=== PATIENT | female | born 1985 | race Hispanic/Latino ===

== ENCOUNTER 2017-03-22 19:37 | Inpatient (IN) | payer MEDICAID, OTHER ==
[~2017-03-22] VITALS: Ht 154.9 cm; Wt 70.3 kg
[2017-03-22] MEDS ORDERED: LACTATED RINGERS 1000ML 1,000 ML IV PRN (20:28)
[2017-03-22] MEDS ORDERED: LACTATED RINGERS 1000ML 1,000 ML IV ONE (20:44)
[2017-03-22 20:47] LABS: APPEARANCE,URINE Clear (CLEAR); BILIRUBIN,URINE Negative (NEGATIVE); COLOR,URINE Yellow (YELLOW); GLUCOSE, URINE (UA) Negative (NEGATIVE); KETONES,URINE Negative (NEGATIVE); LEUKOCYTE ESTERASE ,URINE Moderate (NEGATIVE); NITRATE,URINE Negative (NEGATIVE); OCCULT BLOOD,URINE Negative (NEGATIVE); PROTEIN,URINE Negative (NEGATIVE); UROBILINOGEN,URINE 0.2 mg/dL (0.2-1.0)
[2017-03-22 21:05] LABS: BACTERIA,URINE Few /HPF (None Seen); RBC,URINE None Seen /HPF (0-1)
[2017-03-22 21:15] LABS: HEMATOCRIT 34.4 % (36-48); MEAN CORPUSCULAR HEMOGLOBIN 29.4 pg (27.0-33.0); MEAN CORPUSCULAR HGB CONC 33.9 g/dL (32.0-36.0); MEAN CORPUSCULAR VOLUME 86.7 fL (79-99); NUCLEATED RED BLOOD CELLS 0.1 % (0.0-0.19); PLATELET COUNT (AUTO) 197 K/uL (130-400); RED BLOOD CELL COUNT(AUTO) 3.97 MIL/uL (4.00-5.50); RED CELL DISTRIBUTION WIDTH 13.4 % (11.0-15.5); WHITE BLOOD COUNT (AUTO) 9.2 K/uL (4.8-10.8)
[2017-03-23] MEDS ORDERED: OXYTOCIN 10 USP UNITS/ML ONE ×3 (01:53→15:34)
[2017-03-23] MEDS ORDERED: LACTATED RINGERS 1000ML 1,000 ML IV ONE ×2 (01:53→11:16)
[2017-03-23] MEDS ORDERED: OXYTOCIN 10 USP UNITS/ML 20 UNIT in LACTATED RINGERS 1000ML 1,000 ML IV SCH (03:00)
[2017-03-23] MEDS ORDERED: PROMETHAZINE HCL 25 MG/ML 1ML AMPULE IM STA (05:09)
[2017-03-23] MEDS ORDERED: MEPERIDINE-PF 50 MG/ML SYG IVP STA (05:09)
[2017-03-23 06:47] LABS: RAPID PLASMA REAGIN NONREACTIVE (NONREACTIVE)
[2017-03-23] MEDS ORDERED: MEPERIDINE-PF 50 MG/ML SYG IVP SCH ×2 (07:45→08:00)
[2017-03-23] MEDS ORDERED: PROMETHAZINE HCL 25 MG/ML 1ML AMPULE IM SCH ×2 (07:45→08:00)
[2017-03-23] MEDS ORDERED: MEPERIDINE-PF 25 MG/ML SYG ONE (08:02)
[2017-03-23] MEDS ORDERED: LIDOCAINE HCL 2% 20ML ONE (09:46)
[2017-03-23 11:27] VITALS: BP 102/64
[2017-03-23] MEDS ORDERED: BENZOCAINE/LANOLIN/ALOE VERA 60 ML AEROSOL TP PRN (11:30)
[2017-03-23] MEDS ORDERED: HYDROCODONE/ACETAMINOPHEN 5/325 MG TAB PO PRN (11:30)
[2017-03-23] MEDS ORDERED: MEASLES/MUMPS/RUBELLA VACCINE, LIVE 0.5 ML/VIAL SQ PRN (11:30)
[2017-03-23] MEDS ORDERED: OXYTOCIN-LR 20 UNITS/1000 ML 1,000 ML IV SCH (11:30)
[2017-03-23] MEDS ORDERED: LANOLIN 30GM OINTMENT TP PRN (11:30)
[2017-03-23] MEDS ORDERED: DIPH,PERTUSS(ACELL),TET VAC/PF 0.5 ML VIAL IM PRN (11:30)
[2017-03-23] MEDS ORDERED: WITCH HAZEL 1 PAD TP PRN (11:30)
[2017-03-23] MEDS ORDERED: ACETAMINOPHEN-CODEINE 300/30MG TAB PO PRN (11:30)
[2017-03-23] MEDS ORDERED: ACETAMINOPHEN 325 MG TAB PO PRN (11:30)
[2017-03-23] MEDS: IBUPROFEN 800 MG TAB PO PRN ×2 (11:54→20:05)
[2017-03-23] MEDS ORDERED: PREN-66 PO (13:01)
[2017-03-23 15:43] VITALS: BP 141/66
[2017-03-23 19:41] VITALS: BP 118/55
[2017-03-23] MEDS: DOCUSATE SODIUM 100 MG CAP PO SCH (21:14)
[2017-03-23 22:59] VITALS: BP 96/54
[2017-03-24 03:22] VITALS: BP 98/59
[2017-03-24 05:37] LABS: HEMATOCRIT 27.8 % (36-48); MEAN CORPUSCULAR HEMOGLOBIN 29.8 pg (27.0-33.0); MEAN CORPUSCULAR VOLUME 87.7 fL (79-99); PLATELET COUNT (AUTO) 194 K/uL (130-400); RED BLOOD CELL COUNT(AUTO) 3.17 MIL/uL (4.00-5.50); RED CELL DISTRIBUTION WIDTH 13.4 % (11.0-15.5)
[2017-03-24 07:24] LABS: HEPATITIS Bs ANTIGEN SCREEN P Negative (Negative)
[2017-03-24] MEDS: DOCUSATE SODIUM 100 MG CAP PO SCH ×2 (07:34→20:55)
[2017-03-24] MEDS: IBUPROFEN 800 MG TAB PO PRN ×2 (07:34→17:08)
[2017-03-24 07:49] VITALS: BP 96/63
[2017-03-24 11:35] VITALS: BP 91/55
[2017-03-24 15:57] VITALS: BP 99/55
[2017-03-24 19:22] VITALS: BP 96/53
[2017-03-24 23:05] VITALS: BP 94/53
[2017-03-25 03:21] VITALS: BP 93/57
[2017-03-25 07:28] VITALS: BP 93/58
[2017-03-25] MEDS: DOCUSATE SODIUM 100 MG CAP PO SCH (08:56)
[2017-03-25] MEDS: IBUPROFEN 800 MG TAB PO PRN (08:57)
[2017-03-25 11:36] VITALS: BP 86/50
[2017-03-25] MEDS ORDERED: IBUP-2070 PO (13:32)
== END 2017-03-25 15:00 | disposition home or self-care (01) | DRG 775 ==
LOC: WSH 19:38 → OBSVTOIN 19:50 → WSH 03-23 11:24
PROVIDERS: ADMIT Obstetrics & Gynecology; ATTEND Obstetrics & Gynecology
PROC: 10E0XZZ Delivery of Products of Conception, External Approach (ICD-10-PCS; principal; 2017-03-22)
PROC: 10907ZC Drainage of Amniotic Fluid, Therapeutic from Products of Conception, Via Natural or Artificial Opening (ICD-10-PCS; 2017-03-22)
PROC: 3E0P3VZ Introduction of Hormone into Female Reproductive, Percutaneous Approach (ICD-10-PCS; 2017-03-22)
PROC: 30233S1 Transfusion of Nonautologous Globulin into Peripheral Vein, Percutaneous Approach (ICD-10-PCS; 2017-03-22)
PROC: 3E0234Z Introduction of Serum, Toxoid and Vaccine into Muscle, Percutaneous Approach (ICD-10-PCS; 2017-03-22)
PROC: 3E0134Z Introduction of Serum, Toxoid and Vaccine into Subcutaneous Tissue, Percutaneous Approach (ICD-10-PCS; 2017-03-22)
DX: O80 Encounter for full-term uncomplicated delivery (principal); Z23 Encounter for immunization; Z37.0 Single live birth; Z3A.40 40 weeks gestation of pregnancy
CPT/HCPCS: 36415; 81001; 83033; 85027; 86592; 86701; 86850; 86900; 86901; 87340; 87390; A4351; A4606; G0378; J2175; J2550; J2590; J2791; J3490; J7120

== ENCOUNTER 2018-11-09 20:20 | Inpatient (IN) | payer OTHER, MEDICAID | END 2018-11-11 16:45 | disposition home or self-care (01) | LOC: EDH 20:20 → WSH 11-10 04:36 → LDH 20:21 ==